=== PATIENT | female | born 1960 | race African-American/Black ===

== ENCOUNTER 2019-08-26 10:51 | Emergency (ER) | payer MEDICAID ==
[~2019-08-26] VITALS: Ht 165.1 cm; Wt 120.0 kg
[2019-08-26 10:54] VITALS: BP 169/94
[2019-08-26] MEDS ORDERED: ASPIRIN 81MG TABLET PO ONE (11:30)
[2019-08-26 11:53] LABS: HEMOGLOBIN. 13.6 g/dL (12.0-16.0); MEAN CORPUSCULAR HEMOGLOBIN 27.7 pg (28.0-32.0); MEAN CORPUSCULAR VOLUME 83.3 fL (81.0-99.0); MEAN PLATELET VOLUME 8.8 fl (7.4-10.4); PLATELET 149 x1000/uL (130-400); RED BLOOD CELL COUNT 4.92 mill/uL (4.2-5.4); RED CELL DISTRIBUTION WIDTH 13.5 % (11.6-14.6)
[2019-08-26 11:59] LABS: CHLORIDE 104 mEq/L (98-107)
[2019-08-26 12:12] LABS: PLATELET ESTIMATE NORMAL
== END 2019-08-26 13:19 | disposition home or self-care (01) ==
LOC: ER 10:51
DX: R07.89 Other chest pain (principal); F43.9 Reaction to severe stress, unspecified; I10 Essential (primary) hypertension
CPT/HCPCS: 36415; 71045; 80053; 83880; 84484; 85025; 93005; 99285